=== PATIENT | female | born 1995 | race Caucasian/White ===

== ENCOUNTER 2016-12-07 09:52 | Emergency (ER) | payer OTHER ==
[~2016-12-07] VITALS: Ht 157.5 cm; Wt 73.0 kg
[2016-12-07 10:02] VITALS: Ht 157.5 cm; Wt 73.0 kg
[2016-12-07] MEDS ORDERED: SOD CHLORIDE 0.9% 1,000 ML IV STA (11:26)
[2016-12-07] MEDS ORDERED: MULT-761 PO (11:28)
[2016-12-07] MEDS ORDERED: PNV1TAB.2 PO (11:28)
[2016-12-07] MEDS ORDERED: CALC500T91 PO (11:28)
[2016-12-07] MEDS ORDERED: IRON18TA PO (11:29)
[2016-12-07 12:15] LABS: BASOPHIL # 0.1 10^3/ul (0.0-0.1); BASOPHILS % 0.4 % (0.0-2.0); EOSINOPHILS # 0.2 10^3/ul (0.0-0.5); EOSINOPHILS % 1.3 % (0.0-7.0); HEMATOCRIT 31.7 % (37.0-47.0); HEMOGLOBIN 10.8 g/dl (12.0-16.0); LYMPHOCYTES # 1.6 10^3/ul (0.8-2.9); LYMPHOCYTES % 14.1 % (18.0-55.0); MEAN CORPUSCULAR HEMOGLOBIN 27.8 pg (29.0-33.0); MEAN CORPUSCULAR HGB CONC 34.1 g/dl (32.0-37.0); MEAN CORPUSCULAR VOLUME 81.5 fl (72.0-104.0); MEAN PLATELET VOLUME 10.1 fl (7.4-10.4); MONOCYTE # 0.6 10^3/ul (0.3-0.9); MONOCYTES % 4.9 % (0.0-13.0); NEUTROPHILS % 78.6 % (30.0-74.0); PLATELET COUNT 316 10^3/UL (140-415); RED BLOOD COUNT 3.89 10^6/ul (4.20-5.40); RED CELL DISTRIBUTION WIDTH 14.1 % (11.5-14.5); WHITE BLOOD COUNT 11.6 10^3/ul (4.8-10.8)
[2016-12-07 12:21] LABS: ADD UMIC NO; UR ASCORBIC ACID NEGATIVE (NEGATIVE); UR BILIRUBIN (Dip) NEGATIVE (NEGATIVE); UR BLOOD (Dip) NEGATIVE (NEGATIVE); UR CLARITY CLEAR (CLEAR); UR COLOR YELLOW (YELLOW); UR GLUCOSE (Dip) NEGATIVE (NEGATIVE); UR KETONES (Dip) NEGATIVE (NEGATIVE); UR LEUKOCYTE ESTERASE (Dip) NEGATIVE Leu/ul (NEGATIVE); UR NITRITE (Dip) NEGATIVE (NEGATIVE); UR SPECIFIC GRAVITY (Dip) 1.006 (1.003-1.030); UR TOTAL PROTEIN (Dip) NEGATIVE (NEGATIVE); UR UROBILINOGEN (Dip) NEGATIVE (NEGATIVE)
[2016-12-07 12:42] LABS: ALBUMIN 4.1 g/dl (3.3-4.9); BILIRUBIN,INDIRECT 0.2 mg/dl (0-1.1); BILIRUBIN,TOTAL 0.2 mg/dl (0.2-1.3); CALCIUM 9.7 mg/dl (8.4-10.2); CREATININE 0.5 mg/dl (0.44-1.00); POTASSIUM 3.9 mmol/L (3.5-5.1); TOTAL PROTEIN 8.2 g/dl (6.1-8.1)
[2016-12-07 13:48] VITALS: BP 113/50; PULSE 65; RESP 19; TEMP 97.9
--- NOTE | 2016-12-07 14:07 | ERD ---
ER Documentation Chief Complaint Date/Time DATE: 12/07/16 TIME: 14:01 Chief Complaint Complaint of fainting this and 19 weeks HPI 21-year-old woman brought in by EMS for syncopal episode while standing in line , she is 19 weeks by dates and previously confirmed normal ultrasound. She denies abdominal pain, no pelvic pain or cramping no vaginal bleeding or dysuria. Patient denied chest pain or shortness of breath, denies presyncopal palpitations. The episode was witnessed by her friend who helped her down to the ground, her friend states syncope lasted for about 1 minute and she had no post syncopal confusion, and had no seizure activity. Patient was transported here without further complications. ROS All systems reviewed and are negative except as per history of present illness. Medications Home Meds Reported Medications Iron (Iron) 18 Mg Tablet, 18 MG PO DAILY, TAB 12/07/16 Calcium Carbonate ([id number]) 500 Mg Tablet, 500 MG PO DAILY, TAB 12/07/16 PNV No.115-Iron Fumarate-FA ( 19 Chewable) 1 Each Tab.chew, 1 TAB PO DAILY, TAB.CHEW 12/07/16 Discontinued Reported Medications Multivitamin (MULTI VITAMIN DAILY) 1 Each Tablet, 1 TAB PO DAILY, TAB 12/07/16 Allergies Allergies: Coded Allergies: Latex, Natural Rubber (Verified Allergy, Intermediate, 12/07/16) PMhx/Soc None Medical and Surgical Hx: pt denies Medical Hx, pt denies Surgical Hx Anesthesia Reaction: No Hx Neurological Disorder: No Hx Respiratory Disorders: No Hx Cardiac Disorders: No Hx Psychiatric Problems: No Hx Miscellaneous Medical Probl: No Hx Alcohol Use: No Hx Substance Use: No Hx Tobacco Use: No Smoking Status: Never smoker FmHx Family History: No diabetes Physical Exam Vitals Vital Signs Date Time Temp Pulse Resp B/P Pulse Ox O2 Delivery O2 Flow Rate FiO2 12/07/16 13:48 97.9 65 19 113/50 100 Room Air 12/07/16 12:13 81 17 105/69 100 Room Air 12/07/16 10:02 98.2 91 20 121/78 98 Physical Exam GENERAL: Well-developed, well-nourished, well-hydrated, in no apparent distress , looks nontoxic in appearance HEENT: Moist mucous membranes, pink conjunctiva, no cervical spine tenderness or step-off deformities, no goiter, no jaundice or icterus, extraocular movements intact without pain. No submandibular induration, and no pharyngeal erythema NEURO: Alert and oriented 3, cranial nerves II through XII intact bilaterally, pupils equal round reactive to light, no focal deficits or facial asymmetry, sensation intact distally Strength 5/5 in upper and lower extremities bilaterally CARDIAC: Regular rate and rhythm, no murmurs rubs or gallops LUNGS: Clear bilaterally no wheezing crackles or stridor ABDOMEN: Soft nontender, no guarding, no rigidity, no rebound, no psoas sign no obturator sign. Gravid abdomen SKIN: Warm and dry to touch, no abrasions, contusions, or hematomas, no lacerations, no ecchymosis, no target lesions, and without ulcers EXTREMITIES: No clubbing cyanosis or edema, calves are bilaterally symmetrical, no Homans sign, no popliteal cord sign. Distal pulses equal and bilateral PSYCH: Normal affect without agitation or irritability Result Diagram: 12/07/16 1150 12/07/16 1150 Results 24 hrs Laboratory Tests Test 12/07/16 11:50 White Blood Count 11.610^3/ul Red Blood Count 3.8910^6/ul Hemoglobin 10.8g/dl Hematocrit 31.7% Mean Corpuscular Volume 81.5fl Mean Corpuscular Hemoglobin 27.8pg Mean Corpuscular Hemoglobin Concent 34.1g/dl Red Cell Distribution Width 14.1% Platelet Count 17767^3/UL Mean Platelet Volume 10.1fl Neutrophils % 78.6% Lymphocytes % 14.1% Monocytes % 4.9% Eosinophils % 1.3% Basophils % 0.4% Nucleated Red Blood Cells % 0.0/100WBC Neutrophils # (Manual) 9.110^3/ul Lymphocytes # 1.610^3/ul Monocytes # 0.610^3/ul Eosinophils # 0.210^3/ul Basophils # 0.110^3/ul Nucleated Red Blood Cells # 0.010^3/ul Urine Color YELLOW Urine Clarity CLEAR Urine pH 6.0 Urine Specific [place] 1.006 Urine Ketones NEGATIVEmg/dL Urine Nitrite NEGATIVEmg/dL Urine Bilirubin NEGATIVEmg/dL Urine Urobilinogen NEGATIVEmg/dL Urine Leukocyte Esterase NEGATIVELeu/ul Urine Hemoglobin NEGATIVEmg/dL Urine Glucose NEGATIVEmg/dL Urine Total Protein NEGATIVEmg/dl Sodium Level 140mmol/L Potassium Level 3.9mmol/L Chloride Level 105mmol/L Carbon Dioxide Level 20mmol/L Anion Gap 19 Blood Urea Nitrogen 5mg/dl Creatinine 0.50mg/dl Glucose Level 77mg/dl Calcium Level 9.7mg/dl Total Bilirubin 0.2mg/dl Direct Bilirubin 0.00mg/dl Indirect Bilirubin 0.2mg/dl Aspartate Amino Transf (AST/SGOT) 37IU/L Alanine Aminotransferase (ALT/SGPT) 39IU/L Alkaline Phosphatase 86IU/L Total Protein 8.2g/dl Albumin 4.1g/dl Globulin 4.10g/dl Albumin/Globulin Ratio 1.00 Lipase 53U/L Current Medications Medications (Trade) Dose Ordered Sig/Sophia Route PRN Reason Start Time Stop Time Status Last Admin Dose Admin Sodium Chloride (NS) 1,000 ml @ 1,000 mls/hr Q1H STAT IV 12/07/16 11:26 12/07/16 12:25 DC 12/07/16 12:05 [facility] IV line was established patient was placed on vehicle monitor technician rhythm strip revealed a sinus rhythm at about 80 bpm with upright P and T waves. Patient was afebrile. I administered 1 L normal saline intravenously. CBC and electrolytes are normal, liver function tests normal, test positive, urine analysis negative for infection. EKG performed, read by me: 81 bpm, normal sinus rhythm, normal axis, no acute ST segment changes, narrow QRS complex, with good R-wave progression in precordial leads. Examination and vital signs remained normal, patient is asymptomatic and ambulatory without difficulty, she will be discharged to follow-up with PMD and air box tester. Differential diagnoses considered, included but not limited to acute coronary syndrome, pulmonary embolism, aortic dissection, abdominal aortic aneurysm, sepsis, stroke, meningitis, encephalitis, pneumonia, appendicitis, cholecystitis , bowel obstruction, pyelonephritis, nephrolithiasis, cystitis, as well as metabolic, hematologic, and electrolyte abnormalities. As well as abscess, cellulitis, fractures, and dislocations. Patient feels much better at this time, and vital signs are normal, symptoms have improved. I did give strict instructions to return to the ED if symptoms continue or worsen, patient will otherwise follow-up with primary care physician. Patient understood instructions and agreed to plan. Disclaimer: Inadvertent spelling and grammatical errors are likely due to EHR/ dictation software use and do not reflect on the overall quality of patient care. Also, please note that the electronic time recorded on this note does not necessarily reflect the actual time of the patient encounter. Departure Diagnosis: Primary Impression: Syncope Syncope type: unspecified Qualified Code: R55 - Syncope, unspecified syncope type Condition: Good Patient Instructions: Syncope, Unk Cause ALVERTO LAWRENCE MD Dec 07, 2016 14:07
== END 2016-12-07 14:06 | disposition home or self-care (01) ==
LOC: E/R 09:52
DX: O99.89 Other specified diseases and conditions complicating pregnancy, childbirth and the puerperium (principal); R55 Syncope and collapse; Z3A.16 16 weeks gestation of pregnancy
CPT/HCPCS: 36415; 80053; 81003; 83690; 85025; 93005; J7030; Z7502

== ENCOUNTER 2016-12-21 11:35 | Outpatient (CLI) | payer OTHER ==
[~2016-12-21] VITALS: Ht 165.1 cm; Wt 73.3 kg
[~2016-12-21 11:35] MED LIST: CALC500T91 PO; IRON18TA PO; PNV1TAB.2 PO
[2016-12-21 12:02] VITALS: BP 103/66; PULSE 87; Ht 165.1 cm; Wt 73.3 kg
--- NOTE | 2016-12-21 12:44 | RADRPT ---
PROCEDURE: Limited obstetric ultrasound CLINICAL INDICATION: labor TECHNIQUE: Multiple transverse and longitudinal grayscale images of the pelvis were obtained valle sabdominally and endovaginally.. COMPARISON: same day FINDINGS: There is a single live intrauterine gestation in a breech position with a heart rate of 153 bp m. The cervix is closed and measures 3.8 cm in length. The placenta is posterior. There is no evidence of a placental abruption or placenta previa. RPTAT: AA IMPRESSION: The cervix is closed and measures 3.8 cm in length. Breech presentation. Posterior placenta. Physician Reba Date Time Electronically viewed and signed by Physician Reba on 12/21/2016 12:44 RA/
[2016-12-21 12:47] LABS: UR CLARITY CLEAR (CLEAR); UR COLOR YELLOW (YELLOW)
[2016-12-21 12:48] LABS: ADD UMIC YES; UR BILIRUBIN (Dip) NEGATIVE (NEGATIVE); UR BLOOD (Dip) NEGATIVE (NEGATIVE); UR GLUCOSE (Dip) NEGATIVE (NEGATIVE); UR KETONES (Dip) NEGATIVE (NEGATIVE); UR LEUKOCYTE ESTERASE (Dip) TRACE Leu/ul (NEGATIVE); UR NITRITE (Dip) NEGATIVE (NEGATIVE); UR TOTAL PROTEIN (Dip) NEGATIVE (NEGATIVE); UR UROBILINOGEN (Dip) 1.0 E.U./dL mg/dL (NEGATIVE)
[2016-12-21 13:02] LABS: UR SQUAMOUS EPITHELIAL CELL MODERATE /HPF (FEW)
--- NOTE | 2016-12-21 15:08 | TRIAGE ---
OB Triage Datetime Report Generated by CPN: 12/21/2016 15:08 Datetime: 12/21/2016 13:17 Stage of : OB Triage Datetime: 12/21/2016 13:06 Labor Evaluation Frequency: 0 Monitor Mode: External Pattern: Normal: <= 5 Contractions in 10 Minutes Resting Tone [place]: Relaxed Comments: OFF DUE TO GESTATIONAL AGE Pain Assessment Pain Scale: 3 Pain Presence: Constant Pain Type: Cramping Pain Goal: 3 Pain Relief Measures: Comfort Measures Datetime: 12/21/2016 12:09 Stage of : OB Triage Datetime: 12/21/2016 11:54 Stage of : OB Triage Assessment Type: Triage Maternal Assessment Level of Consciousness: Fully Conscious DTR's/Clonus: DTRs 2+; No Clonus Headache: Denies Blurred Vision: No Respiratory Effort: Unlabored; Regular Rhythm; Equal Expansion Breath Sounds, Left: Clear and Equal Breath Sounds, Right: Clear and Equal Nausea/Vomiting: Denies RUQ Epigastric Pain: Denies Facial Edema: None Temperature Route: Axillary Fall Risk Assessment History of Falling: (0) No Secondary Diagnosis: (0) No Ambulatory Aid: (0) Bedrest/Nurse Assist IV Therapy: (0) No Gait: (0) Normal/Bedrest/Immobile Mental Status: (0) Oriented to Own Ability Fall Score: 0 Fall Risk Score Definition: No Risk: No action required Labor Evaluation Frequency: APPLIED Monitor Mode: External Resting Tone [place]: Relaxed Heart Rate FHR Baseline Rate: 154 Monitor Mode: Doppler Pain Assessment Pain Scale: 9 Pain Presence: Constant Pain Type: Sharp Pain Location: Abdomen Pain Goal: 3 Pain Relief Measures: Comfort Measures Datetime: 12/21/2016 11:52 Time of Arrival: 12/21/2016 11:26 EGA: 21.3 Arrived By: Ambulatory Arrived From: Home Chief Complaint: C/O CONSTANT ABDOMINAL PAIN UNDER BELLY BUTTON UPON AWAKENING THIS AM.. DENIES L EAKING OR BLEEDING OR UC'S Movement: Present Contractions: Denies/Absent Rupture of Membranes: Denies Vaginal Bleeding: None Vaginal Discharge: Denies Recent Sexual Intercouse: Denies Abdominal Trauma: Not Applicable Patient Complaints: None Time Provider Notified: 12/21/2016 12:09 Provider Notified: KRISTINE Initial Plan: MONITOR, CL, U/A
--- NOTE | 2016-12-21 16:40 | QN ---
Documentation Comment iup 24 co of abd pain improved now vss exam wnl a/p iup 24 weeks false labor dc [place] DRE MARTINEZ MD Dec 21, 2016 16:40
== END 2016-12-21 13:50 | disposition home or self-care (01) ==
LOC: L-D 11:35 → OBT 11:35
PROVIDERS: ATTEND Obstetrics & Gynecology
DX: O47.03 False labor before 37 completed weeks of gestation, third trimester (principal); Z3A.24 24 weeks gestation of pregnancy
CPT/HCPCS: 76817; 81001; Z7500; G0463

== ENCOUNTER 2017-01-23 19:58 | Outpatient (CLI) | payer OTHER ==
[~2017-01-23] VITALS: Ht 160 cm; Wt 76.0 kg
[2017-01-23 21:08] VITALS: Ht 160 cm; Wt 76.0 kg
[2017-01-23 21:14] VITALS: BP 103/61; PULSE 82; RESP 18
[2017-01-23] MEDS ORDERED: LACTATED RINGER'S 1,000 ML IV SCH (21:21)
[2017-01-23 21:30] LABS: ADD UMIC NO; UR ASCORBIC ACID NEGATIVE (NEGATIVE); UR BILIRUBIN (Dip) NEGATIVE (NEGATIVE); UR BLOOD (Dip) NEGATIVE (NEGATIVE); UR CLARITY CLEAR (CLEAR); UR COLOR YELLOW (YELLOW); UR GLUCOSE (Dip) NEGATIVE (NEGATIVE); UR KETONES (Dip) NEGATIVE (NEGATIVE); UR LEUKOCYTE ESTERASE (Dip) NEGATIVE Leu/ul (NEGATIVE); UR NITRITE (Dip) NEGATIVE (NEGATIVE); UR SPECIFIC GRAVITY (Dip) 1.021 (1.003-1.030); UR TOTAL PROTEIN (Dip) NEGATIVE (NEGATIVE); UR UROBILINOGEN (Dip) 1+ mg/dL (NEGATIVE)
--- NOTE | 2017-01-23 23:06 | RADRPT ---
PROCEDURE: Obstetrical ultrasound, limited. CLINICAL INDICATION: Pelvic pain. TECHNIQUE: Multiple sonographic images of the pelvis were obtained using transabdominal technique . Images were obtained with nugent scale and color Doppler. The images were reviewed on a PACS works [employer]. COMPARISON: 12/21/2016. FINDINGS: There is a single living intrauterine gestation with the fetus in a breech presentation. hear t tones of 154 beats per minute are identified. The placenta is posterior in location, grade 1. Th ere is normal amniotic fluid volume with the maximum vertical pocket measuring 5.9 cm. There is no evidence of placenta previa or abruption. Measurements were made in order to determine age. The results are as follows: BPD =6.56 cm HC =24.33 cm AC =23.14 cm FL =4.76 cm. Estimated gestational age of approximately 26 weeks and 4 days. The estimated date of delivery is 04/27/2017. The EFW = 982 +/- 147 grams. Estimated weight percentage equals 66.3%. IMPRESSION: Single viable intrauterine gestation of approximately 26 weeks and 4 days, with an ultrasound JORDAN of 04/27/2017. .Dsahawn Field MD, MD Date Time Electronically viewed and signed by .Dashawn Field MD, MD on 01/23/2017 23:06 .T/
--- NOTE | 2017-01-23 23:07 | RADRPT ---
PROCEDURE: Obstetrical ultrasound, limited. CLINICAL INDICATION: Pelvic pain. TECHNIQUE: Transvaginal evaluation of the cervix was performed. The images were reviewed on a PAC S workstation. COMPARISON: 12/21/2016. FINDINGS: The cervix is closed measuring 3.9 cm. IMPRESSION: Cervical length of 3.9 cm. .Dashawn Field MD, Date Time Electronically viewed and signed by .Dashawn Field MD, MD on 01/23/2017 23:07 .T/
--- NOTE | 2017-01-23 23:34 | PN ---
Triage Information Date/Time Reason for visit: uterine contractions and decreased movement Weeks of Gestation 26+3 /Para 1/0 Diabetes: none Hypertention: none Additional information Reports feeling decreased FM until 1600 after which time FM has returned to normal and pt states fetus is very active now. Pelvic pain began at 1800 and has now resolved. Pt is not sure if pain was contractions or not. Denies LOF or VB Objective Vital Signs Date Time Temp Pulse Resp B/P Pulse Ox O2 Delivery O2 Flow Rate FiO2 01/23/17 21:14 99.0 82 18 103/61 Room Air Heart Rate: 130's Heart Rate Comments moderate variability, +accels, no decels Contractions: >10 Minutes Apart (3 contractions/3.5 hours) Exam Gen: well appearing, sleeping, easily arousable Abd: soft, NT, gravid Results/Medications Results 24 hrs Laboratory Tests Test 01/23/17 21:05 Urine Color YELLOW Urine Clarity CLEAR Urine pH 6.0 Urine Specific [place] 1.021 Urine Ketones NEGATIVE Urine Nitrite NEGATIVE Urine Bilirubin NEGATIVE Urine Urobilinogen 1+ H Urine Leukocyte Esterase NEGATIVE Urine Hemoglobin NEGATIVE Urine Glucose NEGATIVE Urine Total Protein NEGATIVE Medications Current Medications Lactated Ringer's (Lr) 1,000 ml @ 125 mls/hr Q8H IV ; Start 01/23/17 at 21:21 Imaging Results PROCEDURE: Obstetrical ultrasound, limited. CLINICAL INDICATION: Pelvic pain. TECHNIQUE: Multiple sonographic images of the pelvis were obtained using transabdominal technique. Images were obtained with nugent scale and color Doppler. The images were reviewed on a PACS workstation. COMPARISON: 12/21/2016. FINDINGS: There is a single living intrauterine gestation with the fetus in a breech presentation. heart tones of 154 beats per minute are identified. The placenta is posterior in location, grade 1. There is normal amniotic fluid volume with the maximum vertical pocket measuring 5.9 cm. There is no evidence of placenta previa or abruption. Measurements were made in order to determine age. The results are as follows: BPD = 6.56 cm HC = 24.33 cm AC = 23.14 cm FL = 4.76 cm. Estimated gestational age of approximately 26 weeks and 4 days. The estimated date of delivery is 04/27/2017. The EFW = 982 +/- 147 grams. Estimated weight percentage equals 66.3%. IMPRESSION: Single viable intrauterine gestation of approximately 26 weeks and 4 days, with an ultrasound JORDAN of 04/27/2017. PROCEDURE: Obstetrical ultrasound, limited. CLINICAL INDICATION: Pelvic pain. TECHNIQUE: Transvaginal evaluation of the cervix was performed. The images were reviewed on a PACS workstation. COMPARISON: 12/21/2016. FINDINGS: The cervix is closed measuring 3.9 cm. IMPRESSION: Cervical length of 3.9 cm. Disposition: Discharge Assessment/Plan No e/o PTL given rare contractions and TVCL >3cm, currently asymptomatic Reactive NST Pt encouraged to f/up in clinic as scheduled, sooner prn in OB triage PTL and PPROM precautions discussed SHIMA PHELPS MD Jan 23, 2017 23:34
--- NOTE | 2017-01-24 00:35 | TRIAGE ---
OB Triage Datetime Report Generated by CPN: 01/24/2017 00:34 Datetime: 01/23/2017 23:49 Stage of : OB Triage Datetime: 01/23/2017 23:00 Labor Evaluation Frequency: 0 Monitor Mode: External Datetime: 01/23/2017 22:50 Vaginal Exam Dilatation (cms): 0.0 Effacement (%): 0 Station: -3 Exam By: A DIONISIO RN Datetime: 01/23/2017 22:38 Comments: MONITOR OFF PER DR PHELPS ORDER Datetime: 01/23/2017 22:00 Labor Evaluation Frequency: 0 Monitor Mode: External Heart Rate FHR Baseline Rate: 145 Monitor Mode: External US FHR Baseline Changes: No Baseline Change Variability: Moderate 6-25 bpm Accelerations: 15X15 Decelerations: None Category: Category I Datetime: 01/23/2017 21:00 Labor Evaluation Frequency: OCCASIONAL Monitor Mode: External Duration (sec)2399: 50 Quality: Mild Pattern: Normal: <= 5 Contractions in 10 Minutes Resting Tone [place]: Relaxed Heart Rate FHR Baseline Rate: 145 Monitor Mode: External US FHR Baseline Changes: No Baseline Change Variability: Moderate 6-25 bpm Accelerations: 15X15 Decelerations: None Category: Category I Datetime: 01/23/2017 19:56 Stage of : OB Triage Time of Arrival: 01/23/2017 19:40 EGA: 26.1 Arrived By: Ambulatory Arrived From: Home Chief Complaint: CRAMPING STARTED @ 1800 (Annotations: Data stored by CPN on behalf of user) Movement: Decreased Contractions: Occasional Time Contractions Began: 01/23/2017 18:00 Rupture of Membranes: Denies Vaginal Bleeding: None Vaginal Discharge: Denies Recent Sexual Intercouse: Denies Abdominal Trauma: Not Applicable Patient Complaints: None Time Provider Notified: 01/23/2017 20:00 Provider Notified: DR PHELPS Initial Plan: CALL MD EFM Maternal Assessment Level of Consciousness: Fully Conscious DTR's/Clonus: DTRs 2+; No Clonus Headache: Denies Blurred Vision: No Respiratory Effort: Unlabored; Regular Rhythm; Equal Expansion Breath Sounds, Left: Clear and Equal Breath Sounds, Right: Clear and Equal Nausea/Vomiting: Denies RUQ Epigastric Pain: Denies Facial Edema: None Temperature Route: Axillary Fall Risk Assessment History of Falling: (0) No Secondary Diagnosis: (0) No Ambulatory Aid: (0) Bedrest/Nurse Assist IV Therapy: (0) No Gait: (0) Normal/Bedrest/Immobile Mental Status: (0) Oriented to Own Ability Fall Score: 0 Fall Risk Score Definition: No Risk: No action required Datetime: 12/21/2016 11:54 Fall Score: 0 Fall Risk Score Definition: No Risk: No action required Datetime: 12/21/2016 11:52 EGA: 21.3
== END 2017-01-23 23:49 | disposition home or self-care (01) ==
LOC: OBT 19:58 → L-D 20:00 → OBT 23:49
PROVIDERS: ATTEND Obstetrics & Gynecology
DX: O62.9 Abnormality of forces of labor, unspecified (principal); O36.8120 Decreased fetal movements, second trimester, not applicable or unspecified; Z3A.26 26 weeks gestation of pregnancy
CPT/HCPCS: 76815; 76817; 81003; J7120; Z7500; G0463

== ENCOUNTER 2017-02-18 02:45 | Emergency (ER) | payer OTHER ==
[~2017-02-18] VITALS: Ht 165.1 cm; Wt 78.0 kg
[2017-02-18 03:00] VITALS: Ht 165.1 cm; Wt 78.0 kg
[2017-02-18] MEDS ORDERED: ONDANSETRON 4 MG INJ IV STA (03:02)
[2017-02-18] MEDS ORDERED: SOD CHLORIDE 0.9% 1,000 ML IV STA (03:02)
[2017-02-18] MEDS ORDERED: morphine 2 MG INJ IV STA (03:02)
[2017-02-18 03:21] LABS: BASOPHIL # 0.1 10^3/ul (0.0-0.1); BASOPHILS % 0.6 % (0.0-2.0); EOSINOPHILS # 0.2 10^3/ul (0.0-0.5); EOSINOPHILS % 1.8 % (0.0-7.0); HEMATOCRIT 30.4 % (37.0-47.0); HEMOGLOBIN 9.8 g/dl (12.0-16.0); LYMPHOCYTES # 1.9 10^3/ul (0.8-2.9); LYMPHOCYTES % 14.8 % (18.0-55.0); MEAN CORPUSCULAR HEMOGLOBIN 25.4 pg (29.0-33.0); MEAN CORPUSCULAR HGB CONC 32.2 g/dl (32.0-37.0); MEAN CORPUSCULAR VOLUME 78.8 fl (72.0-104.0); MEAN PLATELET VOLUME 9.9 fl (7.4-10.4); MONOCYTE # 0.9 10^3/ul (0.3-0.9); MONOCYTES % 7.1 % (0.0-13.0); NEUTROPHIL # 9.8 10^3/ul (1.6-7.5); PLATELET COUNT 293 10^3/UL (140-415); RED BLOOD COUNT 3.86 10^6/ul (4.20-5.40); RED CELL DISTRIBUTION WIDTH 13.3 % (11.5-14.5); WHITE BLOOD COUNT 13.1 10^3/ul (4.8-10.8)
[2017-02-18 03:30] VITALS: BP 106/65; PULSE 80; RESP 12; TEMP 98.4
[2017-02-18 03:30] LABS: ADD UMIC YES; UR ASCORBIC ACID NEGATIVE (NEGATIVE); UR BACTERIA FEW /HPF (NONE SEEN); UR BILIRUBIN (Dip) NEGATIVE (NEGATIVE); UR BLOOD (Dip) NEGATIVE (NEGATIVE); UR CLARITY SLIGHTLY CLOUDY (CLEAR); UR COLOR YELLOW (YELLOW); UR GLUCOSE (Dip) NEGATIVE (NEGATIVE); UR KETONES (Dip) NEGATIVE (NEGATIVE); UR LEUKOCYTE ESTERASE (Dip) 1+ Leu/ul (NEGATIVE); UR NITRITE (Dip) NEGATIVE (NEGATIVE); UR RBC 1 /HPF (0-5); UR SPECIFIC GRAVITY (Dip) 1.012 (1.003-1.030); UR SQUAMOUS EPITHELIAL CELL MODERATE /HPF (FEW); UR TOTAL PROTEIN (Dip) NEGATIVE (NEGATIVE); UR UROBILINOGEN (Dip) 1+ mg/dL (NEGATIVE)
[2017-02-18 03:49] LABS: ALBUMIN 3.7 g/dl (3.3-4.9); ALBUMIN/GLOBULIN RATIO 0.88; BILIRUBIN,INDIRECT 0.1 mg/dl (0-1.1); BILIRUBIN,TOTAL 0.1 mg/dl (0.2-1.3); CALCIUM 9.3 mg/dl (8.4-10.2); CREATININE 0.49 mg/dl (0.44-1.00); POTASSIUM 3.6 mmol/L (3.5-5.1); TOTAL PROTEIN 7.9 g/dl (6.1-8.1)
--- NOTE | 2017-02-18 03:51 | RADRPT ---
PROCEDURE: ULTRASOUND LIMITED ABDOMEN CLINICAL INDICATION: 21-year-old female with abdominal pain. TECHNIQUE: Multiple sonographic of the right upper quadrant of the abdomen were obtained. The imag es were reviewed on a PACS workstation. COMPARISON: None. FINDINGS: The pancreas isNot well visualized secondary to overlying bowel gas. The liver displays normal echogenicity. The liver measures 16.5 cm in length. No evidence of intrah epatic biliary ductal dilatation is seen. The portal and hepatic veins are unremarkable. The gallbladder no mobile shadowing stones. The gallbladder wall thickness is within normal limits m easuring 2.5 mm. There is a negative sonographic Navarro's sign. No pericholecystic fluid is seen. Th e common bile duct measures 3.1 mm and is not dilated. The right kidney displays normal echogenicity. The right kidney measures 12.4 cm in maximal length. No caliectasis or hydronephrosis is seen. No free fluid is seen. IMPRESSION: Cholelithiasis. .Toi Luis MD, MD Date Time Electronically viewed and signed by .Toi Luis MD, on 02/18/2017 03:50 .M/
[2017-02-18] MEDS ORDERED: HYDR-906 PO (05:02)
[2017-02-18] MEDS ORDERED: ONDA4TAB14 PO (05:02)
[2017-02-18] MEDS ORDERED: CEPH-443 PO (05:19)
--- NOTE | 2017-02-18 05:28 | ERD ---
ER Documentation Chief Complaint Chief Complaint awoken by epigastric pain radiating around to back 0130, vomit x1. 29wk iup HPI 21-year-old female presents with epigastric right upper quadrant pain radiating to back to begin on 05 08. She did vomit one time. She is 29 weeks and states that she has not had much vomiting during this . She went straight up to labor and delivery for an evaluation because she was complaining of abdominal pain. They said that they think her pain is chest pain and sent her back to the emergency room after performing monitoring on the baby to clear the baby of any acute issues. ROS All systems reviewed and are negative except as per history of present illness. Medications Home Meds Active Scripts Cephalexin* (Keflex*) 500 Mg Capsule, 500 MG PO QID for 5 Days, CAP Prov:JUAN PABLO DALY DO 02/18/17 Ondansetron (Ondansetron Odt) 4 Mg Tab.rapdis, 4 MG PO Q6H Y for NAUSEA AND/OR VOMITING, #16 TAB Prov:JUAN PABLO DALY DO 02/18/17 Hydrocodone/Acetaminophen ([place] 5-325 Tablet) 1 Each Tablet, 1 EACH PO Q6, #20 TAB Prov:JUAN PABLO DALY DO 02/18/17 Reported Medications Iron (Iron) 18 Mg Tablet, 18 MG PO DAILY, TAB 12/07/16 Calcium Carbonate ([id number]) 500 Mg Tablet, 500 MG PO DAILY, TAB 12/07/16 PNV No.115-Iron Fumarate-FA ( 19 Chewable) 1 Each Tab.chew, 1 TAB PO DAILY, TAB.CHEW 12/07/16 Allergies Allergies: Coded Allergies: peanut (Verified Allergy, Severe, THROAT CLOSES, 02/18/17) Latex, Natural Rubber (Verified Allergy, Intermediate, 02/18/17) PMhx/Soc History of Surgery: No Anesthesia Reaction: No Hx Neurological Disorder: Yes (2 syncopal episodes during ) Hx Respiratory Disorders: No Hx Cardiac Disorders: No Hx Psychiatric Problems: No Hx Miscellaneous Medical Probl: No Hx Alcohol Use: No Hx Substance Use: No Hx Tobacco Use: No Smoking Status: Never smoker Physical Exam Vitals Vital Signs Date Time Temp Pulse Resp B/P Pulse Ox O2 Delivery O2 Flow Rate FiO2 02/18/17 03:30 98.4 80 12 106/65 100 Room Air 02/18/17 03:00 98.4 80 20 108/71 100 Physical Exam Const: [] Mild distress, in pain Head: Atraumatic Eyes: Normal Conjunctiva ENT: Normal External Ears, Nose and Mouth. Neck: Full range of motion..~ No meningismus. Resp: Clear to auscultation bilaterally Cardio: Regular mild tachycardia, no murmurs Abd: Soft, mild right upper quadrant and epigastric tenderness, gravid abdomen. Normal bowel sounds Skin: No petechiae or rashes Back: No midline or flank tenderness Ext: No cyanosis, or edema Neur: Awake and alert 3, no focal deficits Psych: Normal Mood and Affect Result Diagram: 02/18/1729902/18/17299 Results 24 hrs Laboratory Tests Test 02/18/17 03:00 White Blood Count 13.110^3/ul Red Blood Count 3.8610^6/ul Hemoglobin 9.8g/dl Hematocrit 30.4% Mean Corpuscular Volume 78.8fl Mean Corpuscular Hemoglobin 25.4pg Mean Corpuscular Hemoglobin Concent 32.2g/dl Red Cell Distribution Width 13.3% Platelet Count 38184^3/UL Mean Platelet Volume 9.9fl Neutrophils % 75.0% Lymphocytes % 14.8% Monocytes % 7.1% Eosinophils % 1.8% Basophils % 0.6% Nucleated Red Blood Cells % 0.0/100WBC Neutrophils # 9.810^3/ul Lymphocytes # 1.910^3/ul Monocytes # 0.910^3/ul Eosinophils # 0.210^3/ul Basophils # 0.110^3/ul Nucleated Red Blood Cells # 0.010^3/ul Urine Color YELLOW Urine Clarity SLIGHTLY CLOUDY Urine pH 7.0 Urine Specific [place] 1.012 Urine Ketones NEGATIVEmg/dL Urine Nitrite NEGATIVEmg/dL Urine Bilirubin NEGATIVEmg/dL Urine Urobilinogen 1+mg/dL Urine Leukocyte Esterase 1+Danny/ul Urine Microscopic RBC 1/HPF Urine Microscopic WBC 2/HPF Urine Squamous Epithelial Cells MODERATE/HPF Urine Bacteria FEW/HPF Urine Hemoglobin NEGATIVEmg/dL Urine Glucose NEGATIVEmg/dL Urine Total Protein NEGATIVEmg/dl Sodium Level 140mmol/L Potassium Level 3.6mmol/L Chloride Level 109mmol/L Carbon Dioxide Level 22mmol/L Anion Gap 13 Blood Urea Nitrogen 6mg/dl Creatinine 0.49mg/dl Glucose Level 101mg/dl Calcium Level 9.3mg/dl Total Bilirubin 0.1mg/dl Direct Bilirubin 0.00mg/dl Indirect Bilirubin 0.1mg/dl Aspartate Amino Transf (AST/SGOT) 31IU/L Alanine Aminotransferase (ALT/SGPT) 24IU/L Alkaline Phosphatase 148IU/L Total Protein 7.9g/dl Albumin 3.7g/dl Globulin 4.20g/dl Albumin/Globulin Ratio 0.88 Lipase 99U/L Current Medications Medications (Trade) Dose Ordered Sig/Sophia Route PRN Reason Start Time Stop Time Status Last Admin Dose Admin Sodium Chloride (NS) 1,000 ml @ 1,000 mls/hr Q1H STAT IV 02/18/17 03:02 02/18/17 04:01 DC 02/18/17 03:53 Morphine Sulfate (morphine) 2 mg ONCE STAT IV 02/18/17 03:02 02/18/17 03:04 DC 02/18/17 03:53 Ondansetron HCl (Zofran Inj) 4 mg ONCE STAT IV 02/18/17 03:02 02/18/17 03:04 DC 02/18/17 03:53 Procedures/MDM Biliary colic with UTI. No signs of acute biliary obstruction or acute cholecystitis. Patient was given a grams of morphine and Zofran after which she was asymptomatic. No signs of cardiac ischemia patient denies actually having chest pain. Feels much better and was also given a liter of normal saline. I will discharge her with Keflex as well as some [place] tabs and Zofran ODT. I have also instructed her to go through primary care physician to get a referral for a general surgeon to address the gallbladder stones. Printed her ultrasound report for her. Strict return precautions to the ER for any pain or concerning symptoms Right upper quadrant ultrasound interpretation: Gallstones without any evidence of obstruction, no thickened gallbladder wall, no common bile duct dilation. EKG interpretation: Normal sinus rhythm rate of 71, normal axis, normal intervals, no ST-T wave changes concerning for acute ischemia. Normal EKG Departure Diagnosis: Primary Impression: Biliary colic Additional Impressions: UTI (urinary tract infection) Anemia Condition: Stable Patient Instructions: Understanding Urinary Tract Infections (UTIs), Biliary Colic With Gallstone (Confirmed) Additional Instructions: Call your primary care doctor DARINORROW for an appointment during the next 1-2 days and a referrral for a GENERAL SURGEON. See the doctor sooner or return here if your condition worsens before your appointment time. JUAN PABLO DALY DO Feb 18, 2017 05:28
== END 2017-02-18 05:45 | disposition home or self-care (01) ==
LOC: E/R 02:45
DX: K80.50 Calculus of bile duct without cholangitis or cholecystitis without obstruction (principal); N39.0 Urinary tract infection, site not specified; D64.9 Anemia, unspecified
CPT/HCPCS: 36415; 76705; 80053; 81001; 83690; 85025; 93005; 96374; 96375; J2270; J2405; J7030; Z7502

== ENCOUNTER 2017-03-09 07:48 | Outpatient (CLI) | payer OTHER ==
[~2017-03-09] VITALS: Ht 165.1 cm; Wt 76.9 kg
[~2017-03-09 07:48] MED LIST changes: +CEPH-443 PO; +HYDR-906 PO; +ONDA4TAB14 PO
[2017-03-09 08:26] VITALS: Ht 165.1 cm; Wt 76.9 kg
--- NOTE | 2017-03-09 08:50 | RADRPT ---
PROCEDURE: US OB biophysical profile. CLINICAL INDICATION: decreased movements, vaginal bleeding TECHNIQUE: Multiple sonographic images of the pelvis were obtained. The images were reviewed on a PACS workstation. COMPARISON: No prior studies are available for comparison. FINDINGS: There is a single viable intrauterine gestation. Cardiac activity is present with 123 beats per min [place]. There is a vertex presentation. The placenta is fundal. There is no evidence of placental abruption. There is a normal amount of amniotic fluid with an TAMARA = 12.6 cm. Biophysical profile: movement 2/2 tone 2/2. breathing 2/2 TAMARA 2/2 Total 11/14 RPTAT: AA . IMPRESSION: Normal biophysical profile. . .Tay Ellis MD, Date Time Electronically viewed and signed by .Tay Ellis MD, MD on 03/09/2017 08:50 .S/
[2017-03-09 11:09] LABS: ADD UMIC YES; UR ASCORBIC ACID NEGATIVE (NEGATIVE); UR BACTERIA FEW /HPF (NONE SEEN); UR BILIRUBIN (Dip) NEGATIVE (NEGATIVE); UR BLOOD (Dip) 2+ mg/dL (NEGATIVE); UR CLARITY CLEAR (CLEAR); UR COLOR YELLOW (YELLOW); UR GLUCOSE (Dip) NEGATIVE (NEGATIVE); UR KETONES (Dip) NEGATIVE (NEGATIVE); UR LEUKOCYTE ESTERASE (Dip) 2+ Leu/ul (NEGATIVE); UR MUCUS FEW /HPF (NONE SEEN); UR NITRITE (Dip) NEGATIVE (NEGATIVE); UR RBC 1 /HPF (0-5); UR SPECIFIC GRAVITY (Dip) 1.015 (1.003-1.030); UR SQUAMOUS EPITHELIAL CELL FEW /HPF (FEW); UR TOTAL PROTEIN (Dip) NEGATIVE (NEGATIVE); UR UROBILINOGEN (Dip) 1+ mg/dL (NEGATIVE)
[2017-03-09] MEDS ORDERED: CEFTRIAXONE 1 GM INJ IM ONE (11:30)
[2017-03-09] MEDS ORDERED: LACTATED RINGER'S 1,000 ML IV ONE (12:00)
[2017-03-09] MEDS ORDERED: CEFTRIAXONE 1 GM/50 ML (PMX) 50 ML IVPB SCH (12:00)
--- NOTE | 2017-03-09 13:28 | TRIAGE ---
OB Triage Datetime Report Generated by CPN: 03/09/2017 13:28 Datetime: 03/09/2017 11:01 Labor Evaluation Frequency: 5-10 Monitor Mode: External Duration (sec)2399: 50-90 Quality: Mild Pattern: Normal: <= 5 Contractions in 10 Minutes Resting Tone [place]: Relaxed Heart Rate FHR Baseline Rate: 135 Monitor Mode: External US FHR Baseline Changes: No Baseline Change Variability: Moderate 6-25 bpm Accelerations: 15X15 Decelerations: None Category: Category I Pain Presence: None/Denies Datetime: 03/09/2017 10:01 Monitor Mode: External Resting Tone [place]: Relaxed Heart Rate FHR Baseline Rate: 135 Monitor Mode: External US FHR Baseline Changes: No Baseline Change Variability: Moderate 6-25 bpm Accelerations: 15X15 Decelerations: None Category: Category I Pain Presence: None/Denies Datetime: 03/09/2017 09:55 Vaginal Exam Dilatation (cms): 0.0 Effacement (%): 0 Station: -3 Exam By: Lisbeth RN Datetime: 03/09/2017 09:01 Labor Evaluation Frequency: OCC Monitor Mode: External Quality: Mild Pattern: Normal: <= 5 Contractions in 10 Minutes Resting Tone [place]: Relaxed Heart Rate FHR Baseline Rate: 140 Monitor Mode: External US FHR Baseline Changes: No Baseline Change Variability: Moderate 6-25 bpm Accelerations: 15X15 Decelerations: None Category: Category I Pain Assessment Pain Scale: 4 Pain Presence: Intermittent Pain Type: Ache Pain Location: Abdomen; Perineum Pain Goal: 0 Pain Relief Measures: Comfort Measures Datetime: 03/09/2017 07:58 Stage of : OB Triage Datetime: 03/09/2017 07:50 Assessment Type: Triage Maternal Assessment Level of Consciousness: Fully Conscious DTR's/Clonus: DTRs 2+; No Clonus Headache: Denies Blurred Vision: No Respiratory Effort: Unlabored; Regular Rhythm; Equal Expansion Breath Sounds, Left: Clear and Equal Breath Sounds, Right: Clear and Equal Nausea/Vomiting: Denies RUQ Epigastric Pain: Denies Lower Extremities Edema: None Degree: None Upper Extremities Edema: None Degree: None Facial Edema: None Fall Risk Assessment History of Falling: (0) No Secondary Diagnosis: (0) No Ambulatory Aid: (0) Bedrest/Nurse Assist IV Therapy: (0) No Gait: (0) Normal/Bedrest/Immobile Mental Status: (0) Oriented to Own Ability Fall Score: 0 Fall Risk Score Definition: No Risk: No action required Datetime: 03/09/2017 07:45 Time of Arrival: 03/09/2017 07:42 EGA: 32.4 Arrived By: Ambulatory Arrived From: Home Chief Complaint: Vaginal Bleeding Movement: Present Contractions: Occasional Time Contractions Began: 03/09/2017 00:00 Rupture of Membranes: Denies Vaginal Bleeding: Normal Show; Small Vaginal Discharge: Present Recent Sexual Intercouse: Denies Abdominal Trauma: Not Applicable Patient Complaints: Other Time Provider Notified: 03/09/2017 09:48 Provider Notified: Gal Initial Plan: NST, BPP/TAMARA for placenta position Datetime: 02/18/2017 02:29 Stage of : OB Triage Datetime: 02/18/2017 02:28 Labor Evaluation Frequency: 1/20 MIN Monitor Mode: External Duration (sec)2399: 70 Quality: Mild Pattern: Normal: <= 5 Contractions in 10 Minutes Resting Tone [place]: Relaxed Heart Rate FHR Baseline Rate: 135 Monitor Mode: External US FHR Baseline Changes: No Baseline Change Variability: Moderate 6-25 bpm Accelerations: 15X15 Decelerations: None Category: Category I Datetime: 02/18/2017 01:55 Stage of : OB Triage Time of Arrival: 02/18/2017 01:55 EGA: 29.6 Arrived By: Wheelchair Arrived From: Home Chief Complaint: C/O CHEST / BACK PAIN CRUSHING STABBING/ PT STATES IT FEELS LIKE SOMEONE IS SITTI NG ON HER CHEST AND SHE CAN'T BREATH Movement: Present Contractions: Denies/Absent Rupture of Membranes: Denies Vaginal Bleeding: None (Annotations: Data stored by CPN on behalf of user) Vaginal Discharge: Denies Recent Sexual Intercouse: Denies Abdominal Trauma: Not Applicable Patient Complaints: None Time Provider Notified: 02/18/2017 02:22 Provider Notified: DR PRESLEY Initial Plan: CALL MD [facility] Maternal Assessment Level of Consciousness: Fully Conscious DTR's/Clonus: DTRs 2+; No Clonus Headache: Denies Blurred Vision: No Respiratory Effort: Unlabored; Regular Rhythm; Equal Expansion Breath Sounds, Left: Clear and Equal Breath Sounds, Right: Clear and Equal Nausea/Vomiting: Denies RUQ Epigastric Pain: Denies Lower Extremities Edema: None Degree: None Upper Extremities Edema: None Degree: None Facial Edema: None Temperature Route: Oral Fall Risk Assessment History of Falling: (0) No Secondary Diagnosis: (0) No Ambulatory Aid: (0) Bedrest/Nurse Assist IV Therapy: (0) No Gait: (0) Normal/Bedrest/Immobile Mental Status: (0) Oriented to Own Ability Fall Score: 0 Fall Risk Score Definition: No Risk: No action required Monitor Mode: External Monitor Mode: External US Pain Assessment Pain Scale: 10 Pain Presence: Constant Pain Type: Crushing; Stabbing (Annotations: PT STATES SOMEONE IS SITTING ON CHEST AND SHE CAN'T BREATH) Datetime: 02/18/2017 01:54 Stage of : OB Triage Datetime: 02/18/2017 01:53 Stage of : OB Triage Datetime: 01/23/2017 19:56 EGA: 26.1 Fall Score: 0 Fall Risk Score Definition: No Risk: No action required Datetime: 12/21/2016 11:54 Fall Score: 0 Fall Risk Score Definition: No Risk: No action required Datetime: 12/21/2016 11:52 EGA: 21.3
--- NOTE | 2017-03-09 17:16 | PN ---
Triage Information Date/Time Reason for visit: Vaginal spotting Weeks of Gestation 32 weeks 4 days /Para Diabetes: none Hypertention: none Objective Heart Rate: 130's Contractions: None Results/Medications Results 24 hrs Laboratory Tests Test 03/09/17 09:30 Urine Color YELLOW Urine Clarity CLEAR Urine pH 6.0 Urine Specific [place] 1.015 Urine Ketones NEGATIVE Urine Nitrite NEGATIVE Urine Bilirubin NEGATIVE Urine Urobilinogen 1+ H Urine Leukocyte Esterase 2+ H Urine Microscopic RBC 1 Urine Microscopic WBC 3 Urine Squamous Epithelial Cells FEW Urine Bacteria FEW A Urine Mucus FEW A Urine Hemoglobin 2+ H Urine Glucose NEGATIVE Urine Total Protein NEGATIVE Disposition: Discharge Assessment/Plan 21 years old 32 weeks complains of pinkish discharge noted in the vagina after wiping pelvic, examination no trace of blood in the vagina cervix long and closed chain discharge home with recommendation to be followed at [facility] return to the hospital with any signs and symptoms of labor or pelvic pressure or vaginal bleeding. LAINA TORRES MD Mar 09, 2017 17:16
== END 2017-03-09 13:25 | disposition home or self-care (01) ==
LOC: OBT 07:48 → L-D 07:50 → OBT 13:25
PROVIDERS: ATTEND Obstetrics & Gynecology
DX: O20.8 Other hemorrhage in early pregnancy (principal); Z3A.32 32 weeks gestation of pregnancy
CPT/HCPCS: 36415; 76818; 81001; 87086; 96360; 96367; J0696; J7120; Z7500; G0463

== ENCOUNTER 2017-03-27 11:09 | Emergency (ER) | payer OTHER ==
[~2017-03-27] VITALS: Ht 162.6 cm; Wt 79.2 kg
[~2017-03-27 11:09] MED LIST changes: -HYDR-906 PO
[2017-03-27 11:11] VITALS: Ht 162.6 cm; Wt 79.2 kg
[2017-03-27 15:22] LABS: BASOPHIL # 0.1 10^3/ul (0.0-0.1); BASOPHILS % 0.8 % (0.0-2.0); EOSINOPHILS # 0.3 10^3/ul (0.0-0.5); EOSINOPHILS % 2.4 % (0.0-7.0); HEMATOCRIT 29.2 % (37.0-47.0); HEMOGLOBIN 9.2 g/dl (12.0-16.0); LYMPHOCYTES % 18.6 % (18.0-55.0); MEAN CORPUSCULAR HEMOGLOBIN 23.4 pg (29.0-33.0); MEAN CORPUSCULAR HGB CONC 31.5 g/dl (32.0-37.0); MEAN CORPUSCULAR VOLUME 74.1 fl (72.0-104.0); MONOCYTE # 0.8 10^3/ul (0.3-0.9); MONOCYTES % 7.7 % (0.0-13.0); NEUTROPHIL # 7.4 10^3/ul (1.6-7.5); NEUTROPHILS % 69.7 % (30.0-74.0); PLATELET COUNT 296 10^3/UL (140-415); RED BLOOD COUNT 3.94 10^6/ul (4.20-5.40); RED CELL DISTRIBUTION WIDTH 14.4 % (11.5-14.5); WHITE BLOOD COUNT 10.6 10^3/ul (4.8-10.8)
[2017-03-27 15:31] LABS: ALBUMIN 3.4 g/dl (3.3-4.9); ALBUMIN/GLOBULIN RATIO 0.82; BILIRUBIN,INDIRECT 0.1 mg/dl (0-1.1); BILIRUBIN,TOTAL 0.1 mg/dl (0.2-1.3); CALCIUM 8.7 mg/dl (8.4-10.2); CREATININE 0.55 mg/dl (0.44-1.00); POTASSIUM 3.7 mmol/L (3.5-5.1); TOTAL PROTEIN 7.5 g/dl (6.1-8.1)
[2017-03-27] MEDS ORDERED: BEN25 PO (16:06)
--- NOTE | 2017-03-27 16:18 | ERD ---
ER Documentation Chief Complaint Chief Complaint generalized rash x 2 weeks , 35 weeks preg HPI This is a 21-year-old female that presents to the ER complaining of a rash around her mouth and behind her neck. Patient has a past medical history of eczema, and states that she has had a bad bout over the last week. Rash is very itchy, she has been trying Aquaphor for the rash however it is not resolved. Patient is currently 35 weeks , she denies any abdominal pain , vaginal bleeding, vaginal discharge, pelvic pain, urinary frequency or dysuria. ROS 12 point review of systems was done, all negative except per HPI. Medications Home Meds Active Scripts Diphenhydramine Hcl* (Benadryl*) 25 Mg Cap, 25 MG PO Q6H Y for ITCHING for 3 Days, CAP Prov:JULIO ARMIJO 03/27/17 Reported Medications PNV No.115-Iron Fumarate-FA ( 19 Chewable) 1 Each Tab.chew, 1 TAB PO DAILY, TAB.CHEW 12/07/16 Discontinued Reported Medications Iron (Iron) 18 Mg Tablet, 18 MG PO DAILY, TAB 12/07/16 Calcium Carbonate ([id number]) 500 Mg Tablet, 500 MG PO DAILY, TAB 12/07/16 Discontinued Scripts Cephalexin* (Keflex*) 500 Mg Capsule, 500 MG PO QID for 5 Days, CAP Prov:JUAN PABLO DALY DO 02/18/17 Ondansetron (Ondansetron Odt) 4 Mg Tab.rapdis, 4 MG PO Q6H Y for NAUSEA AND/OR VOMITING, #16 TAB Prov:JUAN PABLO DALY DO 02/18/17 Allergies Allergies: Coded Allergies: peanut (Verified Allergy, Severe, THROAT CLOSES, 03/27/17) Latex, Natural Rubber (Verified Allergy, Intermediate, 03/27/17) PMhx/Soc Medical and Surgical Hx: pt denies Surgical Hx History of Surgery: No Anesthesia Reaction: No Hx Neurological Disorder: Yes (2 syncopal episodes during ) Hx Respiratory Disorders: No Hx Cardiac Disorders: No Hx Psychiatric Problems: No Hx Miscellaneous Medical Probl: No Hx Alcohol Use: No Hx Substance Use: No Hx Tobacco Use: No Smoking Status: Never smoker Physical Exam Vitals Vital Signs Date Time Temp Pulse Resp B/P Pulse Ox O2 Delivery O2 Flow Rate FiO2 03/27/17 11:11 98.0 122 18 127/91 100 Physical Exam GENERAL: The patient is well developed and appropriate for usual state of health , in no apparent distress. HEENT: Atraumatic. Conjunctivae are pink. Pupils equal, round, and reactive to light. Extraocular muscles are grossly intact. Bilateral tympanic membranes are clear with no evidence of erythema, effusion or dulling of the light reflex. The oropharynx is clear with no erythema or exudates. Area of redness and dry skin around mouth, no lip swelling, tongue swelling, eyes swelling. no icterus, no jaundice CHEST: Clear to auscultation bilaterally. There are no rales, wheezes or rhonchi. HEART: Regular rate and rhythm. No murmurs, clicks, rubs or gallops. NEURO: Alert and oriented. SKIN: area of dry skin to the back of the neck with lichenification. No petechiae, no bruising. Result Diagram: 03/27/17 1406 03/27/17 1406 Results 24 hrs Laboratory Tests Test 03/27/17 14:06 White Blood Count 10.610^3/ul Red Blood Count 3.9410^6/ul Hemoglobin 9.2g/dl Hematocrit 29.2% Mean Corpuscular Volume 74.1fl Mean Corpuscular Hemoglobin 23.4pg Mean Corpuscular Hemoglobin Concent 31.5g/dl Red Cell Distribution Width 14.4% Platelet Count 67743^3/UL Mean Platelet Volume 11.0fl Neutrophils % 69.7% Lymphocytes % 18.6% Monocytes % 7.7% Eosinophils % 2.4% Basophils % 0.8% Nucleated Red Blood Cells % 0.0/100WBC Neutrophils # 7.410^3/ul Lymphocytes # 2.010^3/ul Monocytes # 0.810^3/ul Eosinophils # 0.310^3/ul Basophils # 0.110^3/ul Nucleated Red Blood Cells # 0.010^3/ul Sodium Level 136mmol/L Potassium Level 3.7mmol/L Chloride Level 106mmol/L Carbon Dioxide Level 22mmol/L Anion Gap 12 Blood Urea Nitrogen 4mg/dl Creatinine 0.55mg/dl Glucose Level 71mg/dl Calcium Level 8.7mg/dl Total Bilirubin 0.1mg/dl Direct Bilirubin 0.00mg/dl Indirect Bilirubin 0.1mg/dl Aspartate Amino Transf (AST/SGOT) 17IU/L Alanine Aminotransferase (ALT/SGPT) 25IU/L Alkaline Phosphatase 171IU/L Total Protein 7.5g/dl Albumin 3.4g/dl Globulin 4.10g/dl Albumin/Globulin Ratio 0.82 Procedures/MDM This is a 21-year-old female that presents to the ER with a rash around her mouth into the back of her neck, patient does have a past medical history of eczema, and she has had this rash in the past, however the last week is gotten worse. This is likely patient's eczema. Patient was sent up to labor and delivery for clearance, OPERATING ROOM SURGICAL TECHNICIAN saw her and cleared her. OPERATING ROOM SURGICAL TECHNICIAN asked for patient to return in 2 days to repeat lab work. Patient liver panel was normal other than a slight elevation in alk phos. There was however no elevation in AST or ALT or bilirubin. Patient is extremely well-appearing does not complain of abdominal pain is not jaundiced does not have x-rays. Suspicion for hepatic cholestasis in is low. Was given Benadryl for itching, I advised her to try [id number] Aveeno for eczema. Patient is to follow-up with her primary care doctor within 1-2 days and return to ER in 2 days or sooner if symptoms worsen. My medical decision making shared with the patient she understands and agrees with plan Departure Diagnosis: Primary Impression: Rash Additional Impression: Anemia Condition: Stable Patient Instructions: Self-Care for Skin Rashes Referrals: [facility] (PCP) Additional Instructions: Return to this facility in 2 DAYS for a follow-up exam.Return sooner if your condition worsens. JULIO ARMIJO Mar 27, 2017 16:18
== END 2017-03-27 16:17 | disposition home or self-care (01) ==
LOC: FTE 11:09
DX: R21 Rash and other nonspecific skin eruption (principal); D64.9 Anemia, unspecified
CPT/HCPCS: 80053; 85025; Z7502; 99283

== ENCOUNTER 2017-03-27 12:09 | Outpatient (CLI) | END 2017-03-27 14:50 | disposition home or self-care (01) ==

== ENCOUNTER 2017-03-30 11:24 | Outpatient (CLI) | payer OTHER ==
[~2017-03-30] VITALS: Ht 165.1 cm; Wt 79.0 kg
[~2017-03-30 11:24] MED LIST changes: +BEN25 PO; -CALC500T91 PO; -CEPH-443 PO; -IRON18TA PO; -ONDA4TAB14 PO
[2017-03-30 11:37] VITALS: BP 110/71; PULSE 96; RESP 18; Ht 165.1 cm; Wt 79.0 kg
--- NOTE | 2017-03-30 12:10 | RADRPT ---
PROCEDURE: US OB biophysical profile. CLINICAL INDICATION: Biophysical profile. History of rash TECHNIQUE: Multiple sonographic images of the pelvis were obtained. The images were reviewed on a PACS workstation. COMPARISON: March 09, 2017 FINDINGS: There is a single live intrauterine , in cephalic presentation. A normal heart rate i s identified measuring 148 beats per minute. The amniotic fluid index is within normal limits measur ing 13.8 cm. Biophysical profile: movement 2/2 tone 2/2. breathing 2/2 TAMARA 2/2 Total 11/14 IMPRESSION: 1. Biophysical profile score of 8/8. 2. Single live intrauterine in cephalic presentation with normal heart rate of 148 b pm. 3. Normal amniotic fluid index of 13.8 cm. RPTAT: AAPP Physician Jhoana Date Time Electronically viewed and signed by Physician Jhoana on 03/30/2017 12:10 EMMA/
--- NOTE | 2017-03-30 12:35 | PN ---
Triage Information Date/Time Reason for visit: Suspected cholestasis of Weeks of Gestation 35 weeks 4/7 day /Para p1 para 0 Diabetes: none Hypertention: none Objective Vital Signs Date Time Temp Pulse Resp B/P Pulse Ox O2 Delivery O2 Flow Rate FiO2 03/30/17 11:37 98.0 96 18 110/71 Heart Rate: 130's Contractions: None Exam No pelvic exam Assessment/Plan 21 years old EDC April 30, 2017 35 weeks and 4/7 day today she came to triage unit with chief complaint of generalized itching which now she only has it on her face, using antihistamine ointment, result of the bile acid sent 3 days ago not available yet. Her biophysical profile is 8/8 and her TAMARA is 13.5 she was discharged home recommended to make appointment for April 02 to repeat biophysical profile, LAINA TORRES MD Mar 30, 2017 12:35
--- NOTE | 2017-03-30 12:49 | TRIAGE ---
OB Triage Datetime Report Generated by CPN: 03/30/2017 12:48 Datetime: 03/30/2017 12:21 Stage of : OB Triage Datetime: 03/30/2017 11:32 Stage of : OB Triage Assessment Type: Triage Maternal Assessment Level of Consciousness: Fully Conscious DTR's/Clonus: DTRs 2+; No Clonus Headache: Denies Blurred Vision: No Respiratory Effort: Unlabored; Regular Rhythm; Equal Expansion Breath Sounds, Left: Clear and Equal Breath Sounds, Right: Clear and Equal Nausea/Vomiting: Denies RUQ Epigastric Pain: Denies Facial Edema: None Temperature Route: Axillary Fall Risk Assessment History of Falling: (0) No Secondary Diagnosis: (0) No Ambulatory Aid: (0) Bedrest/Nurse Assist IV Therapy: (0) No Gait: (0) Normal/Bedrest/Immobile Mental Status: (0) Oriented to Own Ability Fall Score: 0 Fall Risk Score Definition: No Risk: No action required Labor Evaluation Frequency: 0 Monitor Mode: External Resting Tone [place]: Relaxed Heart Rate FHR Baseline Rate: 145 Monitor Mode: External US Variability: Moderate 6-25 bpm Decelerations: None Category: Category I Pain Assessment Pain Scale: 0 Pain Presence: None/Denies Pain Type: N/A Pain Goal: 3 Pain Relief Measures: Comfort Measures Datetime: 03/30/2017 11:30 Time of Arrival: 03/23/2017 11:20 EGA: 34.4 Arrived By: Ambulatory Arrived From: Home Chief Complaint: FOLLOW UP CHOLESTASIS, DENIES BLEEDING, LEAKING OR UC'S Movement: Present Contractions: Denies/Absent Rupture of Membranes: Denies Vaginal Bleeding: None Vaginal Discharge: Denies Recent Sexual Intercouse: Denies Abdominal Trauma: Not Applicable Patient Complaints: None Time Provider Notified: 03/30/2017 12:21 Provider Notified: [facility] Initial Plan: MONITOR,BPP/TAMARA Datetime: 03/27/2017 12:33 Fall Score: 0 Fall Risk Score Definition: No Risk: No action required Datetime: 03/27/2017 12:32 EGA: 35.1 Datetime: 03/09/2017 07:50 Fall Score: 0 Fall Risk Score Definition: No Risk: No action required Datetime: 03/09/2017 07:45 EGA: 32.4 Datetime: 02/18/2017 01:55 EGA: 29.6 Fall Score: 0 Fall Risk Score Definition: No Risk: No action required Datetime: 01/23/2017 19:56 EGA: 26.1 Fall Score: 0 Fall Risk Score Definition: No Risk: No action required Datetime: 12/21/2016 11:54 Fall Score: 0 Fall Risk Score Definition: No Risk: No action required Datetime: 12/21/2016 11:52 EGA: 21.3
== END 2017-03-30 12:30 | disposition home or self-care (01) ==
LOC: L-D 11:24 → OBT 11:24
PROVIDERS: ATTEND Obstetrics & Gynecology
DX: O26.613 Liver and biliary tract disorders in pregnancy, third trimester (principal); K83.1 Obstruction of bile duct; Z3A.35 35 weeks gestation of pregnancy
CPT/HCPCS: 76818; Z7500; G0463

== ENCOUNTER 2017-04-02 10:24 | Outpatient (CLI) | payer OTHER ==
[~2017-04-02] VITALS: Ht 165.1 cm; Wt 78.9 kg
[2017-04-02 10:43] VITALS: BP 108/66; PULSE 96; RESP 18; Ht 165.1 cm; Wt 78.9 kg
--- NOTE | 2017-04-02 11:05 | RADRPT ---
PROCEDURE: US biophysical profile. CLINICAL INDICATION: Decreased motion. TECHNIQUE: Multiple sonographic images of the uterus were obtained. The images were revi ewed on a PACS workstation. COMPARISON: March 30, 2017 FINDINGS: There is a single live intrauterine gestation. heart rate is 154 beats per minute. The position is cephalic. The placenta is posterior grade II with no abruption or previa. The TAMARA is 10.6 cm. (Normal = 5-20 cm.) Breathing Movement: 2 Gross Body Movement: 2 Tone: 2 Qualitative Amniotic Fluid Volume: 2 TOTAL: 8 IMPRESSION: 1. The biophysical score is 8/8. RPTAT: QQ .Dale Fung MD, MD Date Time Electronically viewed and signed by .Dale Fung MD, on 04/02/2017 11:05 .R/
--- NOTE | 2017-04-02 11:37 | TRIAGE ---
OB Triage Datetime Report Generated by CPN: 04/02/2017 11:37 Datetime: 04/02/2017 11:30 Stage of : OB Triage Datetime: 04/02/2017 10:40 Assessment Type: Triage Maternal Assessment Level of Consciousness: Fully Conscious DTR's/Clonus: DTRs 2+; No Clonus Headache: Denies Blurred Vision: No Respiratory Effort: Unlabored; Regular Rhythm; Equal Expansion Breath Sounds, Left: Clear and Equal Breath Sounds, Right: Clear and Equal Nausea/Vomiting: Denies RUQ Epigastric Pain: Denies Lower Extremities Edema: None Degree: None Upper Extremities Edema: None Degree: None Facial Edema: None Fall Risk Assessment History of Falling: (0) No Secondary Diagnosis: (0) No Ambulatory Aid: (0) Bedrest/Nurse Assist IV Therapy: (0) No Gait: (0) Normal/Bedrest/Immobile Mental Status: (0) Oriented to Own Ability Fall Score: 0 Fall Risk Score Definition: No Risk: No action required Datetime: 04/02/2017 10:38 Time of Arrival: 04/02/2017 10:23 EGA: 36.0 Arrived By: Ambulatory Arrived From: Home Chief Complaint: PT HERE FOR NST/BPP FOR POSSIBLE CHOLESTASIS Movement: Present Contractions: Denies/Absent Rupture of Membranes: Denies Vaginal Bleeding: None Vaginal Discharge: Denies Recent Sexual Intercouse: Denies Abdominal Trauma: Not Applicable Patient Complaints: None Time Provider Notified: 04/02/2017 10:30 Provider Notified: MELISSA Initial Plan: NST/BPP Datetime: 04/02/2017 10:36 Labor Evaluation Monitor Mode: External Heart Rate Monitor Mode: External US Datetime: 03/30/2017 11:32 Fall Score: 0 Fall Risk Score Definition: No Risk: No action required Datetime: 03/30/2017 11:30 EGA: 34.4 Datetime: 03/27/2017 12:33 Fall Score: 0 Fall Risk Score Definition: No Risk: No action required Datetime: 03/27/2017 12:32 EGA: 35.1 Datetime: 03/09/2017 07:50 Fall Score: 0 Fall Risk Score Definition: No Risk: No action required Datetime: 03/09/2017 07:45 EGA: 32.4 Datetime: 02/18/2017 01:55 EGA: 29.6 Fall Score: 0 Fall Risk Score Definition: No Risk: No action required Datetime: 01/23/2017 19:56 EGA: 26.1 Fall Score: 0 Fall Risk Score Definition: No Risk: No action required Datetime: 12/21/2016 11:54 Fall Score: 0 Fall Risk Score Definition: No Risk: No action required Datetime: 12/21/2016 11:52 EGA: 21.3
--- NOTE | 2017-04-02 12:47 | CONS ---
Date/Time of Note Date/Time of Note DATE: 04/02/17 TIME: 12:41 Consultation Date/Type/Reason Admit Date/Time April 02, 2017 OB triage consult This patient is 21 years old primigravida with estimated date of confinement of April 30, 2017 which makes her 36 weeks and 0 days. She came to triage to be examined for possible cholestasis of a . In reviewing her record ;her blood type is O Rh+ , HIV, Chlamydia, gonorrhea were all negative, she is immune to rubella and her RPR test was negative. On exam ,her abdomen is soft, she has only occasional contraction heart tracings are active are normal ,with fairly good variability and occasional accelerations, no decelerations. Her general vital signs appear to be normal, with blood pressure 108/66 pulse rate 96,, respiration 18 temperature 99.1,, and oxygen saturation 99% in room temperature. Constitutional: No chills, No diaphoresis, No disoriented, No febrile, No improved, No no complaints, No other, No poor po, No requiring IVF, No requiring O2 Eyes: No discharge, No no complaints, No other, No pain, No redness, No visual change ENT: No bleeding, No congestion, No discharge, No dysphagia, No no complaints, No other, No pain, No sore throat Respiratory: No cough, No no complaints, No other, No pain, No pleuritic pain, No shortness of breath, No sputum, No wheezing Cardiovascular: No chest pain, No edema, No lightheadedness, No no complaints, No orthopenea, No other, No palpitations, No paroxysmal nocturnal dyspnea Gastrointestinal: No blood, No constipation, No decreased appetite, No diarrhea , No flatus, No nausea, No no complaints, No other, No pain, No passing stool, No vomiting Genitourinary: other (Due to lack of any effective contractions pelvic exam was not performed), No bleeding, No discharge, No dysuria, No flank pain, No hematuria, No no complaints Musculoskeletal: No back pain, No bone/joint pain, No neck pain, No no complaints, No other, No restricted range of motion, No swelling Skin: No bruising, No erythema, No laceration, No no complaints, No other, No pruritis, No rash, No skin lesions Neurologic: other (Knee-jerk reflexes are normal), No confusion, No dizziness, No focal-weakness, No headache, No no complaints , No seizure, No syncope Additional Comments On ultrasound study; the report is a single live intrauterine gestation with heartbeat of 154/min cephalic presentation placenta was posterior grade 2 no evidence of previa her amniotic fluid index was 10.6 cm Biophysical profile was 8/8. With these finding patient was reassured about her condition ,however we will wait for the result of bile acids that was sent yesterday and an appointment will be made for her in 3 days for repeat of monitoring and to be scheduled for section in case cholestasis of is confirmed. At this time we will start Actigall 300 mg 3 times daily Social History Smoking Status: Never smoker Exam/Review of Systems Vital Signs Vitals Vital Signs Date Time Temp Pulse Resp B/P Pulse Ox O2 Delivery O2 Flow Rate FiO2 04/02/17 10:43 99.1 96 18 108/66 99 Room Air LEENA BOO MD Apr 02, 2017 12:47
== END 2017-04-02 11:45 | disposition home or self-care (01) ==
LOC: OBT 10:24 → L-D 10:24 → OBT 11:45
PROVIDERS: ATTEND Obstetrics & Gynecology
DX: O26.613 Liver and biliary tract disorders in pregnancy, third trimester (principal); K83.1 Obstruction of bile duct; Z3A.36 36 weeks gestation of pregnancy
CPT/HCPCS: 76818; Z7500; G0463

== ENCOUNTER 2017-04-05 10:42 | Outpatient (CLI) | payer OTHER ==
[~2017-04-05] VITALS: Ht 165.1 cm; Wt 79.3 kg
[2017-04-05 12:20] VITALS: BP 99/61; PULSE 82; Ht 165.1 cm; Wt 79.3 kg
--- NOTE | 2017-04-05 12:20 | RADRPT ---
PROCEDURE: Obstetrical ultrasound for biophysical profile CLINICAL INDICATION: Biophysical profile. . TECHNIQUE: Obstetrical ultrasound of the uterus for biophysical profile. Transabdominal views are obtained. COMPARISON: US PELVIS 04/02/2017 FINDINGS: Single intrauterine gestation. Presentation: Cephalic. Placenta: Posterior No evidence of placental abruption. No evidence of placenta previa. breathing movement = 2/2 tone = 2/2 motion = 2/2 TAMARA = 2/2 TAMARA = 9.7 cm heart rate: 142 beats per minute IMPRESSION: Single intrauterine gestation. Biophysical profile 11/14 RPTAT: AADD .Fuad Green MD, MD Date Time Electronically viewed and signed by .Fuad Green MD, on 04/05/2017 12:20 .B/
--- NOTE | 2017-04-05 13:17 | CONS ---
Date/Time of Note Date/Time of Note DATE: 04/05/17 TIME: 13:12 Consultation Date/Type/Reason Admit Date/Time April 05, 2017 OB triage consult This patient is a 21 years old 1 para 0 with estimated date of confinement of April 30, 2017, which makes her 36 weeks and 3 days now. She came to triage last week due to possibility of cholestasis of . After examination order was given for the measurement of the bile acids. The result of this test still not available and apparently takes another 2-3 days. On examination today there are not much changes the palms of her hands and soles of her feet as well as other places. we do not see the typical erythema of cholestasis of , however she is complaining of pruritus on the back of her neck and chest. On examination today the abdomen is soft she has only occasional contractions. heart tracing has good variability with occasional acceleration no decelerations. Her contractions are infrequent ; every 10-15 minutes which she does not even feel the contractions. Her general vital signs are normal with blood pressure of 99/61 ,pulse rate of 82, respiration 18, temperature 98.1 . Exam/Review of Systems Vital Signs Vitals Vital Signs Date Time Temp Pulse Resp B/P Pulse Ox O2 Delivery O2 Flow Rate FiO2 04/05/17 12:20 98.1 82 99/61 LEENA BOO MD Apr 05, 2017 13:17
--- NOTE | 2017-04-05 16:33 | TRIAGE ---
OB Triage Datetime Report Generated by CPN: 04/05/2017 16:33 Datetime: 04/05/2017 12:57 Stage of : OB Triage Datetime: 04/05/2017 12:16 Stage of : OB Triage Assessment Type: Triage Maternal Assessment Level of Consciousness: Fully Conscious DTR's/Clonus: DTRs 2+; No Clonus Headache: Denies Blurred Vision: No Respiratory Effort: Unlabored; Regular Rhythm; Equal Expansion Breath Sounds, Left: Clear and Equal Breath Sounds, Right: Clear and Equal Nausea/Vomiting: Denies RUQ Epigastric Pain: Denies Facial Edema: None Temperature Route: Axillary Fall Risk Assessment History of Falling: (0) No Secondary Diagnosis: (0) No Ambulatory Aid: (0) Bedrest/Nurse Assist IV Therapy: (0) No Gait: (0) Normal/Bedrest/Immobile Mental Status: (0) Oriented to Own Ability Fall Score: 0 Fall Risk Score Definition: No Risk: No action required Labor Evaluation Frequency: 6-7 Monitor Mode: External Duration (sec)2399: 30-50 Pattern: Normal: <= 5 Contractions in 10 Minutes Resting Tone Dozier: Relaxed Heart Rate FHR Baseline Rate: 140 Monitor Mode: External US Variability: Moderate 6-25 bpm Accelerations: 10X10 Decelerations: None Category: Category I Pain Assessment Pain Scale: 4 Pain Presence: Intermittent Pain Type: Cramping Pain Location: Abdomen Pain Goal: 3 Pain Relief Measures: Comfort Measures Datetime: 04/05/2017 12:15 Stage of : OB Triage Assessment Type: Triage Datetime: 04/05/2017 12:14 Labor Evaluation Frequency: 5-6 Monitor Mode: External Duration (sec)2399: 50-60 Pattern: Normal: <= 5 Contractions in 10 Minutes Resting Tone Dozier: Relaxed Heart Rate FHR Baseline Rate: 145 Monitor Mode: External US Variability: Moderate 6-25 bpm Accelerations: 10X10 Decelerations: None Category: Category I Pain Assessment Pain Scale: 2 Pain Presence: Intermittent Pain Type: Cramping Pain Location: Abdomen Pain Goal: 3 Pain Relief Measures: Comfort Measures Datetime: 04/05/2017 12:04 Time of Arrival: 04/05/2017 10:33 EGA: 36.3 Arrived By: Ambulatory Arrived From: Home Chief Complaint: FOLLOW UP FOR CHOLESTASIS, DENIES LEAKING OR BLEEDING, UC'S Q 6-8 Movement: Present Contractions: Irregular Contractions: 6-7 Rupture of Membranes: Denies Vaginal Bleeding: None Vaginal Discharge: Denies Recent Sexual Intercouse: Denies Abdominal Trauma: Not Applicable Patient Complaints: Cramping Time Provider Notified: 04/05/2017 12:57 Provider Notified: FOROOHAR Initial Plan: MONITOR, BPP Datetime: 04/05/2017 11:17 Labor Evaluation Frequency: 5-6 Monitor Mode: External Duration (sec)2399: 20-30 Resting Tone Dozier: Relaxed Heart Rate FHR Baseline Rate: 145 Monitor Mode: External US Variability: Moderate 6-25 bpm Accelerations: 10X10 Decelerations: None Category: Category I Pain Assessment Pain Scale: 4 Pain Presence: Intermittent Pain Type: Cramping Pain Location: Perineum Pain Goal: 3 Pain Relief Measures: Comfort Measures Datetime: 04/02/2017 11:30 Maternal Assessment Level of Consciousness: Fully Conscious Labor Evaluation Frequency: 2-6 Monitor Mode: External Duration (sec)2399: 60-80 Quality: Mild Resting Tone Dozier: Relaxed Heart Rate FHR Baseline Rate: 135 Monitor Mode: External US Variability: Moderate 6-25 bpm Accelerations: 15X15 Decelerations: None Category: Category I Pain Assessment Pain Scale: 0 Pain Goal: 3 Vaginal Exam Membrane Status: Intact Vaginal Bleeding: None Datetime: 04/02/2017 10:40 Fall Score: 0 Fall Risk Score Definition: No Risk: No action required Datetime: 04/02/2017 10:38 EGA: 36.0 Datetime: 03/30/2017 11:32 Fall Score: 0 Fall Risk Score Definition: No Risk: No action required Datetime: 03/30/2017 11:30 EGA: 34.4 Datetime: 03/27/2017 12:33 Fall Score: 0 Fall Risk Score Definition: No Risk: No action required Datetime: 03/27/2017 12:32 EGA: 35.1 Datetime: 03/09/2017 07:50 Fall Score: 0 Fall Risk Score Definition: No Risk: No action required Datetime: 03/09/2017 07:45 EGA: 32.4 Datetime: 02/18/2017 01:55 EGA: 29.6 Fall Score: 0 Fall Risk Score Definition: No Risk: No action required Datetime: 01/23/2017 19:56 EGA: 26.1 Fall Score: 0 Fall Risk Score Definition: No Risk: No action required Datetime: 12/21/2016 11:54 Fall Score: 0 Fall Risk Score Definition: No Risk: No action required Datetime: 12/21/2016 11:52 EGA: 21.3
== END 2017-04-05 13:15 | disposition home or self-care (01) ==
LOC: L-D 10:42 → OBT 10:42
PROVIDERS: ATTEND Obstetrics & Gynecology
DX: O62.9 Abnormality of forces of labor, unspecified (principal); Z3A.36 36 weeks gestation of pregnancy
CPT/HCPCS: 76818; Z7500; G0463

== ENCOUNTER 2017-04-07 23:33 | Outpatient (CLI) | END 2017-04-08 02:02 | disposition home or self-care (01) ==

== ENCOUNTER 2017-04-10 13:10 | Inpatient (IN) | END 2017-04-16 15:55 | disposition home or self-care (01) | DRG 765 ==

== ENCOUNTER 2017-05-17 06:52 | Emergency (ER) | END 2017-05-17 11:30 | disposition home or self-care (01) ==

== ENCOUNTER 2017-05-26 09:15 | Emergency (ER) | END 2017-05-26 13:05 | disposition home or self-care (01) ==

== ENCOUNTER 2017-05-30 03:34 | Inpatient (IN) | END 2017-06-01 12:02 | disposition home or self-care (01) | DRG 419 ==

== ENCOUNTER 2017-06-15 15:25 | Emergency (ER) | END 2017-06-15 16:35 | disposition home or self-care (01) ==

== ENCOUNTER 2017-07-09 21:47 | Emergency (ER) | END 2017-07-10 01:18 | disposition home or self-care (01) ==

== ENCOUNTER 2017-07-19 19:41 | Emergency (ER) | END 2017-07-19 20:20 | disposition home or self-care (01) ==

== ENCOUNTER 2017-07-19 23:40 | Emergency (ER) | END 2017-07-20 02:50 | disposition home or self-care (01) ==

== ENCOUNTER 2017-08-07 14:45 | Emergency (ER) | END 2017-08-07 18:03 | disposition home or self-care (01) ==

== ENCOUNTER 2017-10-22 23:58 | Emergency (ER) | END 2017-10-23 03:03 | disposition home or self-care (01) ==

== ENCOUNTER 2018-03-08 18:05 | Inpatient (IN) | END 2018-03-11 15:32 | disposition home health service (06) | DRG 395 ==